=== PATIENT | female | born 1945 | race Caucasian/White ===

== ENCOUNTER 2016-10-15 07:34 | Observation (INO) | payer MEDICARE ==
[~2016-10-15] VITALS: Ht 157.5 cm; Wt 55.5 kg
[~2016-10-15 07:34] MED LIST: ASPIRIN LOW DOS81 M2 PO; ATENOLOL25 MG PO; FLUOXETINE20 MG PO; K-DUR/KLOR-CON20 MEQ PO; LASIX 40 MG TAB40 MG PO; LEVAQUIN750 MG PO; LEVOTHYROXIN50 MCG PO; LISINOPRIL10 MG PO; LORTAB 5/3255 MG PO; SIMVASTATIN20 MG PO
--- NOTE | 2016-10-15 07:50 | NUR ---
PT TRIAGED, TO ROOM 12 IN STABLE CONDITION VIA WC. CHANGED INTO GOWN AND PLACED ON MONITOR. SIGNIFICANT OTHER AT BEDSIDE, CALL LIGHT IN REACH.
[2016-10-15] MEDS ORDERED: COREG6.25 MG PO (08:18)
[2016-10-15] MEDS ORDERED: ASPIRIN EC325 MG PO (08:20)
[2016-10-15] MEDS ORDERED: OMEPRAZOLE10 MG PO (08:20)
[2016-10-15] MEDS ORDERED: ATORVASTATIN CA40 MG PO (08:20)
[2016-10-15] MEDS ORDERED: FLUOXETINE10 M2 PO (08:21)
--- NOTE | 2016-10-15 09:00 | NUR ---
PT RESTING ON STRETCHER. SAO2=93% ON RA. PT C/O SOB. RR =20. NO DISTRESS NOTED. LUNG SOUNDS CLEAR WITH DIMINISHED ON RIGHT. CALL LIGHT WITHIN REACH. SR ON DIGITAL MEDIA BUYER.
[2016-10-15 09:28] LABS: HEMATOCRIT 40.7 % (37.0-47.0); HEMOGLOBIN 13.4 g/dl (12.0-16.0); MEAN CORPUSCULAR HGB 32.6 pG CALC (26.0-32.0); MEAN CORPUSCULAR HGB CONC 32.9 g/L CALC (32.0-36.0); NEUT# 2.75 thou/uL (2.00-7.15); RED BLOOD COUNT 4.11 mill/uL (4.20-5.60)
[2016-10-15 09:41] LABS: ALBUMIN 3.6 g/dL (3.2-5.0); ALKALINE PHOSPHATASE 133 u/l (38-126); ANION GAP 15 (6-22 (CALC)); BILIRUBIN, TOTAL 1.4 mg/dL (0.0-1.4); BUN 21 mg/dL (8-23); BUN/CREATININE RATIO 25 (12-20 (CALC)); CARBON DIOXIDE 30 mmol/l (22-30); CHLORIDE 99 mmol/l (95-108); CREATININE 0.8 mg/dL (0.5-1.0); GFR > 60 ML/MIN (>=60 (CALC)); GFR FOR AFR.AMER. > 60 ML/MIN (>=60 (CALC)); GLUCOSE 166 mg/dL (82-115); POTASSIUM 4.1 mmol/l (3.5-5.1); SGOT/AST 36 u/l (9-36); SGPT/ALT 24 u/l (11-66); SODIUM 140 mmol/l (137-146); TOTAL PROTEIN 7.9 g/dL (6.3-8.2)
[2016-10-15 09:45] LABS: INTERNATIONAL NORMALIZED RATIO 1.3 RATIO (0.7-1.3); PROTHROMBIN TIME 14.3 SECONDS (9.0-12.5)
--- NOTE | 2016-10-15 09:45 | NUR ---
REPORT GIVEN TO FRITZ NOVA
[2016-10-15 09:53] LABS: MYOGLOBIN 93 ng/mL (0 - 62)
--- NOTE | 2016-10-15 10:23 | NUR ---
PT PROVIDED NTG PASTE AND LASIX ORDERED, AWARE OF PENDING ADMISSION.
--- NOTE | 2016-10-15 12:16 | NUR ---
REPORT GIVEN TO SEAN NOVA
--- NOTE | 2016-10-15 12:29 | NUR ---
PT TO ROOM 277 WITHOUT INCIDENT.
[2016-10-15 12:30] VITALS: BP 122/57
--- NOTE | 2016-10-15 12:35 | NUR ---
PT TO ROOM VIA STRETCHER ACCOMPANIED BY STAFF; AMBULATORY TO BED WITH STAND BY ASSIST; VS AND WT OBTAINED; PT A/O X3; PT STATES SOB AT HOME WENT TO PRIMARY MD AND WAS TOLD TO COME TO ER AFTER XRAY; PT DENIES PAIN; C/O SOB WITH EXERTION; O2 2L VIA NC; ORIENTED TO ROOM AND CALL SYSTEM WILL CONTINUE TO MONITOR.
[2016-10-15 13:30] VITALS: BP 119/64
[2016-10-15 16:11] VITALS: BP 128/71
--- NOTE | 2016-10-15 16:20 | NUR ---
PT WITH VISITOR IN ROOM; DENIES PAIN; TELE MONITOR IN PLACE; O2 2L VIA NC; CALL HICKS WITHIN REACH; WILL CONTINUE TO MONITOR.
[2016-10-15 19:55] VITALS: BP 129/62
--- NOTE | 2016-10-15 21:00 | NUR ---
PT SITTING ON SIDE OF BED RESPIRATIONS EVEN AND UNLABORED. OFFERS NO CONCERNS. ORIENTED TO BED CONTROLS AND CALL LIGHT.
--- NOTE | 2016-10-16 00:10 | NUR ---
RESTING IN SEMIFOWLERS WITH EYES CLOSED RESPIRATIONS EVEN AND UNLABORED.
--- NOTE | 2016-10-16 04:00 | NUR ---
RESTING WITH EYES CLOSED RESPONDS EASILY TO VERBAL COMMAND, DENIES PAIN OR SOB, OOB FOR VITALS AND DAILY WEIGHT. BACK TO BED. CALL LIGHT IN REACH.
[2016-10-16 04:02] VITALS: BP 110/54
[2016-10-16 06:57] LABS: HEMOGLOBIN 13.3 g/dl (12.0-16.0); IMMATURE GRANULOCYTES 0.2 % (0.0-1.0); MEAN CELL VOLUME 99.8 fL CALC (80.0-100.0); MEAN CORPUSCULAR HGB 32.4 pG CALC (26.0-32.0); MEAN CORPUSCULAR HGB CONC 32.4 g/L CALC (32.0-36.0); NEUT# 3.09 thou/uL (2.00-7.15); RED BLOOD COUNT 4.11 mill/uL (4.20-5.60)
[2016-10-16 07:20] LABS: ANION GAP 16 (6-22 (CALC)); BUN 21 mg/dL (8-23); BUN/CREATININE RATIO 25 (12-20 (CALC)); CARBON DIOXIDE 30 mmol/l (22-30); CHLORIDE 98 mmol/l (95-108); CREATININE 0.8 mg/dL (0.5-1.0); GFR > 60 ML/MIN (>=60 (CALC)); GFR FOR AFR.AMER. > 60 ML/MIN (>=60 (CALC)); GLUCOSE 113 mg/dL (82-115); POTASSIUM 4.5 mmol/l (3.5-5.1); SODIUM 140 mmol/l (137-146)
--- NOTE | 2016-10-16 07:40 | NUR ---
ASSESSMENT IS COMPLETED: IV SITE IS FREE FROM REDNESS OR EDEMA. WHEEZING IS NOTED ON LEFT . CONTINUE TO OSBERVE AND MONITOR.
[2016-10-16 12:00] VITALS: BP 121/74
--- NOTE | 2016-10-16 12:40 | NUR ---
PT IS RELAXING ON THE COUCH. AND IS VISITING WITH FAMILY NO DISTRESS NOTED IV SITE IS FREE FROM REDNESS OR EDEMA.
[2016-10-16 16:00] VITALS: BP 132/74
--- NOTE | 2016-10-16 16:00 | NUR ---
PT IV SITE DISCONTINEUD CATHETER INTACT. NO REDNESS OR EDEMA. DISCHARGE INSTRUCTIONS GIVEN AND VERBALIZED UNDERSTANDING.
--- NOTE | 2016-10-16 17:00 | NUR ---
Discharge instructions given. Patient verbalizes understanding of same. Discharged in stable condition via Wheelchair to Home with family. All belongings sent with pt.
== END 2016-10-16 18:08 | disposition home or self-care (01) ==
LOC: ENPENDDIS → ED 07:34 → ED-I 10:15 → ED 10:51 → MS2 10:52
PROVIDERS: Emergency Medicine; ADMIT Internal Medicine; ATTEND Internal Medicine
DX: I11.0 Hypertensive heart disease with heart failure (principal); I50.9 Heart failure, unspecified; J90 Pleural effusion, not elsewhere classified; I42.9 Cardiomyopathy, unspecified; E03.9 Hypothyroidism, unspecified; I25.10 Atherosclerotic heart disease of native coronary artery without angina pectoris; E78.5 Hyperlipidemia, unspecified; R06.02 Shortness of breath; Z87.891 Personal history of nicotine dependence; Z95.1 Presence of aortocoronary bypass graft

== ENCOUNTER 2017-10-07 08:59 | Inpatient (IN) | payer MEDICARE ==
[~2017-10-07] VITALS: Ht 157.5 cm; Wt 55.4 kg
[~2017-10-07 08:59] MED LIST changes: +ASPIRIN EC325 MG PO; +ATORVASTATIN CA40 MG PO; +COREG6.25 MG PO; +FLUOXETINE10 M2 PO; +OMEPRAZOLE10 MG PO
[2017-10-07 10:08] LABS: HEMATOCRIT 41.4 % (37.0-47.0); HEMOGLOBIN 13.7 g/dl (12.0-16.0); IMMATURE GRANULOCYTES 0.2 % (0.0-1.0); MEAN CORPUSCULAR HGB 35.6 pG CALC (26.0-32.0); MEAN CORPUSCULAR HGB CONC 33.1 g/L CALC (32.0-36.0); NEUT# 3.18 thou/uL (2.00-7.15); RED BLOOD COUNT 3.85 mill/uL (4.20-5.60)
[2017-10-07] MEDS ORDERED: PRILOSEC20 MG PO (10:18)
[2017-10-07 10:20] LABS: ALBUMIN 3.9 g/dL (3.2-5.0); ALKALINE PHOSPHATASE 143 u/l (38-126); ANION GAP 19 (6-22 (CALC)); BILIRUBIN, TOTAL 2.2 mg/dL (0.0-1.4); BUN 17 mg/dL (8-23); BUN/CREATININE RATIO 22 (12-20 (CALC)); CARBON DIOXIDE 29 mmol/l (22-30); CHLORIDE 95 mmol/l (95-108); CREATININE 0.8 mg/dL (0.5-1.0); GFR > 60 ML/MIN (>=60 (CALC)); GFR FOR AFR.AMER. > 60 ML/MIN (>=60 (CALC)); POTASSIUM 3.9 mmol/l (3.5-5.1); SGOT/AST 38 u/l (9-36); SGPT/ALT 19 u/l (11-66); SODIUM 138 mmol/l (137-146); TOTAL PROTEIN 8.6 g/dL (6.3-8.2)
[2017-10-07 10:25] LABS: MEAN CELL VOLUME 107.5 fL CALC (80.0-100.0)
[2017-10-07 10:32] LABS: MYOGLOBIN 25 ng/mL (0 - 62)
[2017-10-07 10:52] LABS: INTERNATIONAL NORMALIZED RATIO 1.2 RATIO (0.7-1.3); PROTHROMBIN TIME 13.7 SECONDS (9.0-12.5)
[2017-10-07 14:30] LABS: URINE BILIRUBIN - DIPSTICK NEGATIVE (NEGATIVE); URINE BLOOD DIPSTICK LARGE (NEGATIVE); URINE COLOR YELLOW; URINE GLUCOSE - DIPSTICK NEGATIVE (NEGATIVE); URINE KETONE NEGATIVE (NEGATIVE); URINE NITRITE - DIPSTICK NEGATIVE (Negative); URINE PROTEIN - DIPSTICK NEGATIVE (NEG-TRACE); URINE SPECIFIC GRAVITY 1.015
[2017-10-07 14:32] LABS: URINE CLARITY CLOUDY; URINE LEUK ESTERASE MODERATE (NEGATIVE)
[2017-10-07 14:52] LABS: URINE BACTERIA FEW hpf; URINE SQUAMOUS EPITHELIAL CELL FEW EPI/hpf (0-FEW); URINE WBC 20-50 WBC/hpf (0-5)
[2017-10-07 15:19] VITALS: BP 134/72
[2017-10-07 19:20] VITALS: BP 135/70
[2017-10-08] VITALS (7 sets, daily range): BP systolic 111–128; BP diastolic 55–69
[2017-10-08 05:00] LABS: HEMATOCRIT 37.1 % (37.0-47.0); HEMOGLOBIN 12.1 g/dl (12.0-16.0); MEAN CELL VOLUME 108.2 fL CALC (80.0-100.0); MEAN CORPUSCULAR HGB 35.3 pG CALC (26.0-32.0); MEAN CORPUSCULAR HGB CONC 32.6 g/L CALC (32.0-36.0); RED BLOOD COUNT 3.43 mill/uL (4.20-5.60)
[2017-10-08 05:26] LABS: ANION GAP 16 (6-22 (CALC)); BUN 23 mg/dL (8-23); BUN/CREATININE RATIO 28 (12-20 (CALC)); CARBON DIOXIDE 31 mmol/l (22-30); CHLORIDE 96 mmol/l (95-108); CREATININE 0.8 mg/dL (0.5-1.0); GFR > 60 ML/MIN (>=60 (CALC)); GFR FOR AFR.AMER. > 60 ML/MIN (>=60 (CALC)); MAGNESIUM 1.5 mg/dL (1.6-2.3); POTASSIUM 3.9 mmol/l (3.5-5.1); SODIUM 139 mmol/l (137-146)
[2017-10-09 05:17] VITALS: BP 127/63
[2017-10-09 07:38] VITALS: BP 127/77
[2017-10-09 10:08] LABS: HEMATOCRIT 40.2 % (37.0-47.0); MEAN CELL VOLUME 110.7 fL CALC (80.0-100.0); MEAN CORPUSCULAR HGB 35.8 pG CALC (26.0-32.0); MEAN CORPUSCULAR HGB CONC 32.3 g/L CALC (32.0-36.0); RED BLOOD COUNT 3.63 mill/uL (4.20-5.60); RED CELL DISTRI WIDTH 13.9 % (11.5-15.5)
[2017-10-09 10:31] LABS: ANION GAP 16 (6-22 (CALC)); BUN 28 mg/dL (8-23); BUN/CREATININE RATIO 32 (12-20 (CALC)); CARBON DIOXIDE 33 mmol/l (22-30); CHLORIDE 95 mmol/l (95-108); CREATININE 0.9 mg/dL (0.5-1.0); GFR > 60 ML/MIN (>=60 (CALC)); GFR FOR AFR.AMER. > 60 ML/MIN (>=60 (CALC)); MAGNESIUM 1.6 mg/dL (1.6-2.3); POTASSIUM 3.5 mmol/l (3.5-5.1); SODIUM 141 mmol/l (137-146)
[2017-10-09 12:00] VITALS: BP 135/72
[2017-10-09 16:00] VITALS: BP 112/81
[2017-10-09 20:16] VITALS: BP 124/50
[2017-10-10] VITALS: BP 118/59
[2017-10-10 04:00] VITALS: BP 125/54
[2017-10-10 05:34] LABS: HEMOGLOBIN 12.4 g/dl (12.0-16.0); MEAN CELL VOLUME 112.4 fL CALC (80.0-100.0); MEAN CORPUSCULAR HGB 35.7 pG CALC (26.0-32.0); MEAN CORPUSCULAR HGB CONC 31.8 g/L CALC (32.0-36.0); RED BLOOD COUNT 3.47 mill/uL (4.20-5.60)
[2017-10-10 05:43] LABS: ANION GAP 15 (6-22 (CALC)); BUN 28 mg/dL (8-23); BUN/CREATININE RATIO 32 (12-20 (CALC)); CARBON DIOXIDE 34 mmol/l (22-30); CHLORIDE 96 mmol/l (95-108); CREATININE 0.9 mg/dL (0.5-1.0); GFR > 60 ML/MIN (>=60 (CALC)); GFR FOR AFR.AMER. > 60 ML/MIN (>=60 (CALC)); MAGNESIUM 1.6 mg/dL (1.6-2.3); SODIUM 141 mmol/l (137-146)
[2017-10-10 08:35] VITALS: BP 134/60
[2017-10-10 11:58] VITALS: BP 113/65
[2017-10-10 15:30] VITALS: BP 117/65
[2017-10-10 19:15] VITALS: BP 118/45
[2017-10-11 00:51] VITALS: BP 118/58
[2017-10-11 04:35] VITALS: BP 103/54
[2017-10-11 09:05] VITALS: BP 123/66
[2017-10-11 12:20] VITALS: BP 130/64
[2017-10-11] MEDS ORDERED: ATORVASTATIN CA10 MG PO (13:52)
[2017-10-11] MEDS ORDERED: ZESTRIL/PRIN5 MG/TA1 PO (13:53)
== END 2017-10-11 14:20 | disposition short-term general hospital (02) | DRG 292 ==
LOC: ED 08:59 → ED-I 13:17 → ED 13:50 → MS2 13:51
PROVIDERS: Emergency Medicine; Nurse Practitioner Family; ADMIT Internal Medicine; ATTEND Internal Medicine
DX: I11.0 Hypertensive heart disease with heart failure (principal); I50.23 Acute on chronic systolic (congestive) heart failure; L03.115 Cellulitis of right lower limb; E83.42 Hypomagnesemia; L03.116 Cellulitis of left lower limb; I25.5 Ischemic cardiomyopathy; D75.89 Other specified diseases of blood and blood-forming organs; I25.10 Atherosclerotic heart disease of native coronary artery without angina pectoris; J44.9 Chronic obstructive pulmonary disease, unspecified; R09.02 Hypoxemia; E03.9 Hypothyroidism, unspecified; E78.5 Hyperlipidemia, unspecified; I73.9 Peripheral vascular disease, unspecified; F10.10 Alcohol abuse, uncomplicated; Z95.1 Presence of aortocoronary bypass graft; Z87.891 Personal history of nicotine dependence; Z87.442 Personal history of urinary calculi; Z86.718 Personal history of other venous thrombosis and embolism
CPT/HCPCS: J1650